=== PATIENT | female | born 1995 | race Caucasian/White ===

== ENCOUNTER 2017-06-02 21:56 | Emergency (ER) | payer BC ==
[~2017-06-02] VITALS: Ht 170.2 cm; Wt 59.0 kg
[2017-06-02] MEDS ORDERED: KETOROLAC 30 MG/ML VIAL IVP ONE (22:10)
[2017-06-02] MEDS ORDERED: PROMETHAZINE 25 MG/ML 1 ML AMP IVP ONE (22:10)
[2017-06-02] MEDS ORDERED: HYDROmorphone(ER ONLY) 1 MG/ML IVP ONE (22:10)
--- NOTE | 2017-06-02 22:10 | ER Report ---
History and Physical Time Seen By MD: 22:05 Hx. of Stated Complaint: PATIENT HAD A PROCEDURE DONE ON ONE OF HER LEFT BACK MOLARS ON TUESDAY, SHE HAS SEVERE PAIN IN HER LEFT SIDE OF HER FACE, THEY TOLD PATIENT TO TAKE TYLENOL BUT IT DIDN'T HELP WITH PAIN SO SHE WENT BACK TO SEE THEM TODAY, THEY GAVE HER S SCRIPT FOR DONAVAN AND THAT ALSO HAS NOT GIVEN HER ANY RELIEF. HPI/ROS CHIEF COMPLAINT: Left upper dental pain HISTORY OF PRESENT ILLNESS: 22-year-old female presents to the ER complaining of left upper dental pain. Patient was seen 2 days ago and had a dental procedure, which she states was similar to a root canal but one step down from that. He is been having severe pain despite taking Tylenol. She was seen again today at [place] office for severe pain, was given Tylenol with Codeine. She's taken 2 tablets in the last 2 hours without improvement of her pain. Patient describes 10/10 throbbing pain in her left upper molar. She denies fever or chills. She denies sinus drainage. REVIEW OF SYSTEMS: Respiratory: No cough, no dyspnea. Cardiovascular: No chest pain, no palpitations. Gastrointestinal: No vomiting, no abdominal pain. Musculoskeletal: No back pain. Allergies: Coded Allergies: promethazine (Verified Allergy, Intermediate, nausea/vomiting, 06/03/17) Penicillins (Verified Allergy, Mild, HIVES, 06/02/17) amoxicillin (Verified Allergy, Mild, hives, 06/02/17) azithromycin (Verified Allergy, Mild, hives, 06/02/17) Home Meds No Active Prescriptions or Reported Meds Reviewed Nurses Notes: Yes Old Medical Records Reviewed: Yes Constitutional Vital Sign - Last 24 Hours 06/02/17 06/02/17 06/02/17 06/02/17 22:00 22:26 22:41 22:56 Temp 98.0 Pulse 96 131 93 80 Resp 20 B/P (MAP) 122/13 Pulse Ox 96 95 93 95 O2 Delivery Room Air 06/02/17 06/02/17 06/02/17 23:11 23:16 23:21 Pulse 80 75 73 B/P (MAP) 93/56 (68) Pulse Ox 96 94 97 Physical Exam General Appearance: The patient is alert, has no immediate need for airway protection and no current signs of toxicity.. Vital signs stable, afebrile, pulse ox normal. Moderate distress HEENT: Pupils equal and round no injection. TMs normal, examination, the oropharynx reveals no edema, swelling, redness, bleeding. There is tenderness to left upper tooth at position #16, TMJs are nontender Respiratory: Chest is non tender, lungs are clear to auscultation. Cardiac: regular rate and rhythm Gastrointestinal: Abdomen is soft and non tender, no masses, bowel sounds normal. Musculoskeletal: Neck: Neck is supple and non tender., There is a swollen gland on the left anterior cervical area with minimal tenderness Extremities have full range of motion and are non tender. Skin: No rashes or lesions. DIFFERENTIAL DIAGNOSIS: After history and physical exam differential diagnosis was considered for dental pain, toothache, tooth abscess Medical Decision Making ED Course/Re-evaluation Clinical Indication for ER IV: IV Access ED Course Patient was admitted to an examination room. H&P was done. The dental diagnoses was considered. On clinical examination. Patient has significant pain. Upper full IVs established. She is given Phenergan and Toradol. She shortly thereafter, has agitation and restlessness secondary to the Phenergan. She was given Benadryl 12 and half milligrams. Bertrand the Dilaudid since the Toradol practically relieve the pain. Patient was observed for another 45 minutes and remained without adverse effects. She states she is feeling much better. She's discharged home and advised to take ibuprofen 600 mg 3 times daily and Tylenol as needed. She is advised to use the codeine at the dentist provided if she needs additional pain relief. She is advised to continue adequate demise 3 times a day that was prescribed by the dentist. Follow up with your dentist if any further difficulties develop. Decision to Disposition Date: Jun 02, 2017 Decision to Disposition Time: 23:07 Depart Departure Latest Vital Signs Vital Signs Date Time Temp Pulse Resp B/P (MAP) Pulse Ox O2 Delivery O2 Flow Rate FiO2 06/02/17 23:21 73 93/56 (68) 97 06/02/17 22:00 98.0 20 Room Air Impression: Primary Impression: Pain, dental Additional Impression: Adverse drug reaction Condition: Improved Disposition: HOME OR SELF-CARE New Scripts No Active Prescriptions or Reported Meds Patient Instructions: Toothache (ED) Additional Instructions: Take ibuprofen 200 mg 3-4 tablets 3 times a day with food List Phenergan/promethazine as an medication allergy in the future Problem Qualifiers Additional Impression: Adverse drug reaction Encounter type: initial encounter Qualified Codes: T88.7XXA - Unspecified adverse effect of drug or medicament, initial encounter BRADLY HATFIELD DO Jun 02, 2017 22:10
[2017-06-02] MEDS ORDERED: ONDANSETRON 4 MG/2 ML VIAL IVP ONE (22:30)
[2017-06-02] MEDS ORDERED: ONDANSETRON 4 MG/2 ML VIAL ONE (22:32)
[2017-06-02] MEDS ORDERED: diphenhydrAMINE 50 MG/ML VIAL IVP ONE (22:55)
[2017-06-02 23:21] VITALS: BP 93/56
== END 2017-06-02 23:33 | disposition home or self-care (01) ==
LOC: ER 22:21
DX: K08.89 Other specified disorders of teeth and supporting structures (principal); T88.7XXA Unspecified adverse effect of drug or medicament, initial encounter
CPT/HCPCS: 96374; 96375; 99284; J1200; J1885; J2405; J2550